=== PATIENT | male | born 1950 | race Caucasian/White ===

== ENCOUNTER → 2016-08-28 09:34 | Outpatient (CLI) | payer MEDICAID ==
[2015-03-31 03:51] VITALS: BMI 25.1
[~2016-08-28 09:34] MED LIST: CYMBALTA20 MG PO; HYDROCODON-ACE1 EAC7 PO; TYLENOL #4 W/CO1 TAB PO
== END | disposition home or self-care (01) ==
LOC: D.MRI 09:34
DX: M50.10 Cervical disc disorder with radiculopathy, unspecified cervical region (principal)

== ENCOUNTER 2016-10-14 05:28 | Inpatient (IN) | payer MEDICAID ==
[2016-10-10 15:25] LABS: APPEARANCE CLEAR (CLEAR); BILIRUBIN NEGATIVE (NEGATIVE); COLOR YELLOW (YELLOW); GLUCOSE NEGATIVE (NEGATIVE); KETONE NEGATIVE (NEGATIVE); LEUKOCYTE ESTERASE NEGATIVE (NEGATIVE); NITRITE NEGATIVE (NEGATIVE); PROTEIN NEGATIVE (NEGATIVE); SPECIFIC GRAVITY 1.015 (1.005-1.020); UROBILINOGEN NORMAL (NORMAL)
[2016-10-10 15:27] LABS: BASOPHILS 0.6 % (0-2); HEMATOCRIT 42.5 % (42.0-54.0); HEMOGLOBIN 14.4 g/dL (13.5-17.5); IMMATURE GRANULOCYTES 0.2 % (0-5); LYMPHOCYTES 46.4 % (15-50); MCH 31.8 pg (26.0-34.0); MCHC 33.9 g/dL (31.0-37.0); MCV 93.8 fL (80.0-100.0); MEAN PLATELET VOLUME 9.8 fL (7.4-10.4); MONOCYTES 11.7 % (2-11); NEUTROPHILS 37.1 % (40-80); PLATELET COUNT 203 10x3/uL (130-400); RBC 4.53 10x6/uL (4.20-6.10); RDW 12.8 % (11.5-14.5); WBC 5.3 10x3/uL (4.8-10.8)
[2016-10-10 15:37] LABS: ANION GAP 12.8 mmol/L (8-16); CALCIUM 8.9 mg/dL (8.5-10.1); CARBON DIOXIDE 26.2 mmol/L (21.0-32.0); CREATININE - SERUM 1.2 mg/dL (0.6-1.3)
[2016-10-14] VITALS (9 sets, daily range): BP systolic 104–131; BP diastolic 54–78; Ht 182.9 cm; Wt 90.9 kg
[~2016-10-14] VITALS: Ht 182.9 cm; Wt 90.9 kg
[~2016-10-14 05:28] MED LIST changes: +CELEBREX200 MG PO; +CELEXA20 MG PO; +PRAVACHOL20 MG PO; +TRADJENTA5 MG PO
[2016-10-14] MEDS ORDERED: NORCO PO (10:18)
--- NOTE | 2016-10-14 10:31 | NUR ---
1015 PT STATES NO CHANGES IN HEALTH HISTORY ASSESSMENT SINCE INTERVIEWED ON 10/10/16. LAST BM 10/13/16. RANKS PAIN 8/10 TO NECK & LEFT ARM @ THIS TIME. Hilton MATHIS R.N.
--- NOTE | 2016-10-14 11:44 | HP ---
PATIENT: ALEXANDRIA MARY MEDICAL RECORD: [id number] ACCOUNT: [id number] LOCATION:[facility]- : 54 ADMISSION DATE: 10/14/16 HISTORY AND PHYSICAL EXAMINATION CHIEF COMPLAINT: Neck pain. HISTORY OF PRESENT ILLNESS: This is a pleasant, tall slender male, who had a C5-6 ACF in March 2015. He had good relief. He has now returned to our clinic with complaints of neck pain again and has pain with any movement. He is also beginning to have some weakness and pain in his legs and with flexion and extension. He has tried conservative treatment, which includes meds, modification of activity and repeat cervical injections. PAST MEDICAL HISTORY: Significant for previous back surgery and neck surgery. FAMILY HISTORY: Positive for his father expiring at the age 61 from cancer. Mother just of natural causes. SOCIAL HISTORY: He is . He smokes a half a pack per day. FAMILY DOCTOR: Alma Delia Burns MD. ALLERGIES: MORPHINE AND LATEX. CURRENT MEDICATIONS: Mobic and Celexa. REVIEW OF SYSTEMS: He denies any recent chest pain, shortness of breath, or weight changes. PHYSICAL EXAMINATION: HEENT: Normocephalic. Pupils are equal and reactive to light. CHEST: Clear bilaterally to auscultation. NECK: He has pain with flexion, extension and rotation. EXTREMITIES: He has ataxic gait. Reflexes are 3+ bilateral in both lower extremities. IMPRESSION: C3-4 degenerative disc disease with foraminal compression and canal stenosis. PLAN: A C3-4 LDR fusion at [place]. The risk and benefits of surgery have been explained to him in detail. Risks include bleeding, failure to relieve symptoms, problems with anesthesia and . Time was allowed for questions, questions were answered. The patient wishes to proceed with surgery. TRANSINT:[id number] Voice Confirmation ID: [id number] DOCUMENT ID: [id number] Dictated By: SHABBIR RESENDEZ I have interviewed/examined the above patient and agree with these documented findings. HISTORY AND PHYSICAL [id number] ALEXANDRIA MARY DOROTHY, WILY HALL at 1312 at 1144 CC: [id number] DICTATION DATE: 10/09/16 1534 TUBE COATER: 10/09/162129 ADM IN [facility] [address] [place] [address]
--- NOTE | 2016-10-14 15:21 | NUR ---
MINERAL OIL USED FOR PATRICIA TAN.
--- NOTE | 2016-10-14 16:30 | NUR ---
RECEIVED TO ROOM 2215 FROM RECOVERY ROOM VIA BED. ORIENTED TO ROOM AND CALL LIGHT SYSTEM. SCDs APPLIED TO BLE. O2 DECREASED TO 2L PER NC. CARE PLAN REVIEWED. FAMILY MEMBER IN ROOM. CALL LIGHT IN REACH. WILL CONTINUR WITH PLAN OF CARE.
--- NOTE | 2016-10-14 16:49 | NUR ---
NORCO AND ROBAXIN PO. IV OF D5 1/2NS INITIATED PER MD ORDER. CALL LIGHT IN REACH.
[2016-10-14 17:07] LABS: BASOPHILS 0.5 % (0-2); EOSINOPHILS 1.6 % (0-7); HEMATOCRIT 39.8 % (42.0-54.0); IMMATURE GRANULOCYTES 0.2 % (0-5); LYMPHOCYTES 19.2 % (15-50); MCH 31.1 pg (26.0-34.0); MCHC 32.7 g/dL (31.0-37.0); MCV 95.2 fL (80.0-100.0); MEAN PLATELET VOLUME 9.3 fL (7.4-10.4); MONOCYTES 4.2 % (2-11); NEUTROPHILS 74.3 % (40-80); RBC 4.18 10x6/uL (4.20-6.10); RDW 13.2 % (11.5-14.5); WBC 4.3 10x3/uL (4.8-10.8)
[2016-10-14 17:11] LABS: PLATELET COUNT 161 10x3/uL (130-400)
--- NOTE | 2016-10-14 18:22 | NUR ---
NO CHANGES IN INITIAL ASSESSMENT. SCDs TO BLE. FAMILY MEMBER IN ROOM. CALL LIGHT IN REACH. WILL CONTINUE WITH PLAN OF CARE.
[2016-10-14 18:40] LABS: CALC OSMOLALITY 279 mosm/kg (275-300); CALCIUM 8.2 mg/dL (8.5-10.1); CARBON DIOXIDE 22.7 mmol/L (21.0-32.0); CHLORIDE - SERUM 107 mmol/L (98-107); CREATININE - SERUM 0.9 mg/dL (0.6-1.3); GLUCOSE 116 mg/dL (74-106); POTASSIUM - SERUM 4.3 mmol/L (3.5-5.1); SODIUM 140 mmol/L (136-145); UREA NITROGEN 12 mg/dL (7-18); eGFR NON AFRICAN AMERICAN 90 mL/min (90-120)
--- NOTE | 2016-10-14 19:54 | NUR ---
PATIENT RESTING IN BED WITH NO VISIBLE SIGNS OF DISTRESS. PATIENT HAS A GUEST AT BEDSIDE AND DENIES NEEDS AT THIS TIME. BED IN LOWEST POSITION AND CALL LIGHT WITHIN REACH. ADMINISTERED MEDS PER ORDERS AND COMPLETED ASSESSMENT. ENCOURAGED THE PATIENT TO CALL IF HE HAS NEEDS.
[2016-10-15] VITALS: BP 104/54
[2016-10-15 04:00] VITALS: BP 130/70
--- NOTE | 2016-10-15 07:37 | NUR ---
PATIENT BACK IN BED FROM GOING TO THE BATHROOM. MAITE DRAIN TO RIGHT SIDE OF NECK. PATIENT DOES NOT APPEAR TO BE IN ANY DISTRESS AT THIS TIME. ON ROOM AIR. PATIENT REQUESTED A CUP OF COFFEE. BROUGHT PATIENT A CUP OF COFFEE. PATIENT DENIES FURTHER NEEDS AT THIS TIME.
--- NOTE | 2016-10-15 07:45 | NUR ---
PT REC'D FROM [facility]. PT SITTING UP IN BED WITH DAUGHTER AT BEDSIDE. AAOX4. MAITE DRAIN TO R SIDE OF NECK WITH APPROXIMATELY 10CC'S OF OF SANGUINOUS DRAINAGE TO COLLECTION BULB. NO C/O PAIN. INCISION SITES FREE OF REDNESS AND SWELLING. DRESSING CDI. BED LOW, CALL LIGHT IN REACH, DENIES NEEDS. CPOC.
[2016-10-15 08:44] VITALS: BP 127/72
--- NOTE | 2016-10-15 10:31 | NUR ---
* Is the patient Alert and Oriented? Yes 0 * How many steps to enter\exit or inside your home? 3 0 * PCP ANIL 0 * [facility] [address] [facility] * Preadmission Environment Home with Family 0 * ADLs Independent 0 * Equipment None 0 * List name and contact numbers for known caregivers / representatives who currently or will assist patient after discharge: MCKENZIE ([phone]) DAUGHTER 0 * Community resources currently utilized None 0 * Additional services required to return to the preadmission environment? Yes 0 * Can the patient safely return to the preadmission environment? Yes 0 * Has this patient been hospitalized within the prior 30 days at any hospital? No 0 Grand Total: 0 Patient Name: ALEXANDRIA MARY Admission Status: Elective Accout number: [id number] Admission Date: 10-14-2016 : 1950 Admission Diagnosis: Attending: NEETA Current LOS: 1 Anticipated DC Date: Planned Disposition: Home Primary [place]: [place] [employer] [place] Discharge Planning Comments: CM met with patient and daughter (Mckenzie) to assess discharge planning needs. Patient currently lives with his (Antonella) at their daughter's house. He is independent and has 3 stairs to go up and states he does not have any trouble with them. He denies having and DME or the need for any HH at this time. CM will continue to follow or assist as needed. PCP: [facility] Pharmacy: [facility] Mckenzie _[phone] (daughter) Regulatory Product Manager: Martha Bazan
[2016-10-15 13:37] VITALS: BP 132/76
--- NOTE | 2016-10-15 13:39 | NUR ---
SPOKE WITH OLAMIDE SHEA. NEW ORDERS REC'D FOR DC.
--- NOTE | 2016-10-15 14:31 | NUR ---
DISCHARGE INSTRUCTIONS REVIEWED AT THIS TIME. NO QUESTIONS OR CONCERNS VOICED. MAITE DRAIN TO R SIDE OF NECK DC'D WITH TIP INTACT. PRESSURE AND DRESSING APPLIED. PIV TO R FA DC'D WITH CATHETER INTACT. PRESSURE AND DRESSING APPLIED. BED LOW, CALL LIGHT IN REACH, DENIES NEEDS. ESCORTED OUT VIA WC.
--- NOTE | 2016-11-18 10:24 | OP ---
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 PROCEDURES: 1. Anterior cervical discectomy and decompression of spinal canal. 2. Anterior cervical interbody fusion with MARY-C cage. 3. Radiologic localization in the operating room. SURGEON: Wily Mc MD DEMO SPECIALIST: None. ESTIMATED BLOOD LOSS: 50 cc. SUMMARY: The patient was taken to the operating room and after an adequate level of general anesthetic, was prepped and draped in the usual aseptic manner. An incision was made in the skin line using a 10 blade after infiltrating with 1:400,000 of epinephrine and 0.5% lidocaine. Dissection was carried out down to the longus colli muscles. Cloward self-retaining retractors were used to maintain exposure. A spinal needle was placed in the interspace at C3-C4 and a lateral cervical spine x-ray taken to confirm this position. Following this, the annulus and anterior longitudinal ligament were excised with a 15 blade. Disc material was removed piecemeal with a curette and pituitary. Further removal of bony osteophytes posteriorly was carried out with the Midas Tony drill and a 3-mm curette and then a 1 and 2 mm Cloward punch was used to enlarge the neural foramina bilaterally. When this had been completed, the interspace was measured and found to best accommodate a 6-mm cage. So, a 6 mm, 12 x 14 MARY-C cage was picked out using the LDR instrumentation and a Jamshidi needle was used to harvest bone marrow from the vertebral body of C4 to coat the hydroxyapatite sponge that was provided to place in the cage. The sponge and cage were then inserted into the interspace approximately 1 mm using a C-arm fluoroscope to guide this insertion. Following this, the LDR awl was used to make a hole in the endplates next to the insertion points for the alex. When this was completed, using a small mallet to tap in the awl in both directions then, the alex were inserted into the respective slots and then inserted with the LDR instrumentation with a small mallet being used to tap them in place. When both alex had been inserted and a C-arm image was made to be sure of proper positioning, then the cage tower control operator was removed and the wound was irrigated with an antibiotic solution. Following this, a closure was carried out with 3-0 Dexon on the platysma and a subcuticular stitch with 4-0 Dexon on the skin. The patient tolerated the procedure well and was taken to recovery in stable condition. TRANSINT:[id number] Voice Confirmation ID: [id number] DOCUMENT ID: [id number] OPERATIVE REPORT [id number] ALEXANDRIA MARY, WILY HALL at 1024 CC: [id number] DICTATION DATE: 11/10/16 1548 RISK CONTROL OFFICER: 11/10/16 2231 DIS IN 10/15/16 [address] [place] [address]
--- NOTE | 2016-11-20 10:31 | DS ---
PATIENT:ALEXANDRIA MARY :54 MEDICAL RECORD: [id number] DISCHARGE SUMMARY ADMISSION DATE: 10/14/16 DISCHARGE DATE: 10/15/16 CHIEF COMPLAINT: Neck pain. HISTORY OF PRESENT ILLNESS: Neck pain. He had a C3-4 LDR fusion. HOSPITAL COURSE AND TREATMENT: This 66-year-old male tolerated the above surgery without complications. Incision remained clean, dry and intact with no evidence of infection. On discharge, he was neurovascularly intact with bilateral equal grinding operator strength, dorsiflexion and plantar flexion intact. IMPRESSION: Neck pain. DISCHARGE MEDICATIONS: Per his MAR. Followup is in 1 month with AP and lateral of C-spine and see Dr. Mc. Call the office if he has any complications. Limitations were no lifting over 4 pounds, no driving for 2 weeks, soft collar when in vehicle. TRANSINT:[id number] Voice Confirmation ID: [id number] DOCUMENT ID: [id number] Dictated By: SHABBIR RESENDEZ I have interviewed/examined the above patient and agree with these documented findings. WILY MC MD at 1031 CC: [id number] DICTATION DATE: 11/18/16 1028 LANGUAGE ASSISTANT: 11/18/16 1201 DIS IN 10/15/16 [facility] [address] [place] [address]
== END 2016-10-15 14:36 | disposition home or self-care (01) | DRG 473 ==
LOC: D.SDCHOLD 05:28 → D.MS 15:11
PROVIDERS: Anesthesiology; ADMIT Neurological Surgery
PROC: 0RG10A0 Fusion of Cervical Vertebral Joint with Interbody Fusion Device, Anterior Approach, Anterior Column, Open Approach (ICD-10-PCS; principal; 2016-10-14 12:00)
PROC: 0RB30ZZ Excision of Cervical Vertebral Disc, Open Approach (ICD-10-PCS; 2016-10-14 12:00)
DX: M50.31 Other cervical disc degeneration, high cervical region (principal); M48.02 Spinal stenosis, cervical region; F17.200 Nicotine dependence, unspecified, uncomplicated; E11.9 Type 2 diabetes mellitus without complications; I25.10 Atherosclerotic heart disease of native coronary artery without angina pectoris; K21.9 Gastro-esophageal reflux disease without esophagitis; I25.2 Old myocardial infarction

== ENCOUNTER → 2016-10-29 14:04 | Outpatient (CLI) | payer MEDICAID ==
[2016-10-14 20:10] VITALS: BMI 27.2
[~2016-10-29 14:04] MED LIST changes: +NORCO PO
== END | disposition home or self-care (01) ==
LOC: D.RAD 14:04 → D.MRI 14:30
DX: Z48.811 Encounter for surgical aftercare following surgery on the nervous system (principal)

== ENCOUNTER → 2016-12-12 08:49 | Outpatient (CLI) | payer MEDICAID ==
[2016-10-14 20:10] VITALS: BMI 27.2
== END | disposition home or self-care (01) ==
LOC: D.RAD 08:49
DX: Z48.811 Encounter for surgical aftercare following surgery on the nervous system (principal)